=== PATIENT | female | born 2000 | race African-American/Black ===

== ENCOUNTER 2020-08-22 15:50 | Emergency (ER) | payer MEDICARE ==
[~2020-08-22] VITALS: Ht 154.9 cm; Wt 43.1 kg
[2020-08-22] MEDS ORDERED: ONDANSETRON HCL 4 MG ORAL DISINTEGRATING TAB PO ONE (17:00)
[2020-08-22 17:16] LABS: CLARITY,URINE HAZY (CLEAR); COLOR,URINE YELLOW (YELLOW); KETONES,URINE TRACE (NEGATIVE); LEUKOCYTE ESTERASE ,URINE NEGATIVE (NEGATIVE); NITRITE,URINE NEGATIVE (NEGATIVE); PROTEIN,URINE DIPSTICK 2+ (NEGATIVE); URINE UROBILINOGEN 2 mg/dL (0.2 - 1)
[2020-08-22 17:17] LABS: BACTERIA,URINE FEW /HPF; EPITHELIAL CELLS,URINE MODERATE /LPF; RBC,URINE 0-5 /HPF (0-5); WBC,URINE (MAN) 0-5 /HPF (0-5)
[2020-08-22] MEDS ORDERED: REGLAN10 MG PO (17:26)
[2020-08-22] MEDS ORDERED: METOCLOPRAMIDE HCL 10 MG TAB PO ONE (17:30)
[2020-08-22] MEDS ORDERED: METOCLOPRAMIDE HCL 10 MG TAB ONE (17:36)
== END 2020-08-22 17:44 | disposition home or self-care (01) ==
LOC: ER 16:06
DX: R11.2 Nausea with vomiting, unspecified (principal); F10.129 Alcohol abuse with intoxication, unspecified
CPT/HCPCS: 81001; 81025; 87086; 99283; J8597; Q0162